=== PATIENT | male | born 1990 | race Caucasian/White ===

== ENCOUNTER 2018-10-06 21:24 | Emergency (ER) | payer BC ==
--- NOTE | 2018-10-06 22:24 | EDM.PDOC ---
ED HPI GENERAL MEDICAL PROBLEM - General Chief Complaint: General Stated Complaint: PT SPOKE TO NURSE Time Seen by Provider: 10/06/18 21:43 - History of Present Illness INITIAL COMMENTS - FREE TEXT/NARRATIVE: HISTORY AND PHYSICAL: History of present illness: Patient 28-year-old male presents with a concern of possible abdominal wall hernia and left groin pain he denies testicular pain denies urethral discharge denies history of STD or concern of such. He states this abdominal wall issue has intermittent small bulge that is reducible and without associated symptoms patient denies nausea vomiting fever chills Review of systems: As per history of present illness and below otherwise all systems reviewed and negative. Past medical history: As per history of present illness and as reviewed below otherwise noncontributory. Surgical history: As per history of present illness and as reviewed below otherwise noncontributory. Social history: No reported history of drug or alcohol abuse. Family history: As per history of present illness and as reviewed below otherwise noncontributory. Physical exam: HEENT: Atraumatic, normocephalic, pupils reactive, negative for conjunctival pallor or scleral icterus, mucous membranes moist, throat clear, neck supple, nontender, trachea midline. Lungs: Clear to auscultation, breath sounds equal bilaterally, chest nontender. Heart: S1S2, regular, negative for clicks, rubs, or JVD. Abdomen: Soft, nondistended, nontender. Negative for masses or hepatosplenomegaly. Negative for costovertebral tenderness. Pelvis: Stable nontender. Genitourinary: No genital lesions no urethral discharge no hernia testes/ epididymis normal Rectal: Deferred. Extremities: Atraumatic, negative for cords or calf pain. Neurovascular unremarkable. Neuro: Awake, alert, oriented. Cranial nerves II through XII unremarkable. Cerebellum unremarkable. Motor and sensory unremarkable throughout. Exam nonfocal. Diagnostics: UA urine for GC chlamydia Therapeutics: None Impression: #1 medical screening exam #2 groin pain #3 rule out abdominal wall hernia Definitive disposition and diagnosis as appropriate pending reevaluation and review of above. Bilateral Groin Pain Score (Numeric/FACES): 7 - Related Data Allergies Allergy/AdvReac Type Severity Reaction Status Date / Time No Known Allergies Allergy Verified 07/13/14 02:47 Home Meds: Home Meds Omeprazole Magnesium [Prilosec Otc] 40 mg PO DAILY 07/13/14 [History] Sucralfate [Carafate] 1 gm PO QID 07/13/14 [History] Past Medical History - Past Health History Medical/Surgical History: Denies Medical/Surgical History - Infectious Disease History Infectious Disease History: Reports: Chicken Pox - Past Surgical History Other Musculoskeletal Surgeries/Procedures:: wrist surgery Social & Family History - Tobacco Use Smoking Status *Q: Current Every Day Smoker Years of Tobacco use: 12 Packs/Tins Daily: 1 - Recreational Drug Use Recreational Drug Use: No ED ROS GENERAL - Review of Systems Review Of Systems: ROS reveals no pertinent complaints other than HPI. ED EXAM, GENERAL - Physical Exam Exam: See Below (See dictation) Course - Vital Signs Last Recorded V/S: Last Vital Signs Temp 36.4 C 10/06/18 21:40 Pulse 92 10/06/18 21:40 Resp BP 131/71 10/06/18 21:40 Pulse Ox 96 10/06/18 21:40 - Orders/Labs/Meds Orders: Active Orders 24 hr Category Date Time Status CHLAMYDIA AND GONORRHEA BY TMA Stat Lab 10/06/18 21:53 Received UA W/NORMA RFLX IF INDICATED [URIN] Stat Lab 10/06/18 21:53 Received Departure - Departure Time of Disposition: 22:23 Disposition: Home, Self-Care 01 Condition: Good Clinical Impression: Groin pain, Encounter for medical screening examination - Discharge Information Referrals: PCP,None [Primary Care Provider] - Additional Instructions: The following information is given to patients seen in the emergency department who are being discharged to home. This information is to outline your options for follow-up care. We provide all patients seen in our emergency department with a follow-up referral. The need for follow-up, as well as the timing and circumstances, are variable depending upon the specifics of your emergency department visit. If you don't have a primary care physician on staff, we will provide you with a referral. We always advise you to contact your personal physician following an emergency department visit to inform them of the circumstance of the visit and for follow-up with them and/or the need for any referrals to a consulting specialist. The emergency department will also refer you to a specialist when appropriate. This referral assures that you have the opportunity for followup care with a specialist. All of these measure are taken in an effort to provide you with optimal care, which includes your followup. Under all circumstances we always encourage you to contact your private physician who remains a resource for coordinating your care. When calling for followup care, please make the office aware that this follow-up is from your recent emergency room visit. If for any reason you are refused follow-up, please contact the [facility] emergency department at and asked to speak to the emergency department charge nurse. [facility] [address] [place] [address], [address] [place] [address] [facility] [address] [place] [id number] Follow-up Gen. surgery/urology as needed as discussed return as needed as discussed - My Orders Last 24 Hours: My Active Orders 10/06/18 21:53 CHLAMYDIA AND GONORRHEA BY TMA Stat UA W/NORMA RFLX IF INDICATED [URIN] Stat - Assessment/Plan Last 24 Hours: My Active Orders 10/06/18 21:53 CHLAMYDIA AND GONORRHEA BY TMA Stat UA W/NORMA RFLX IF INDICATED [URIN] Stat
[2018-10-06 22:43] VITALS: BP 128/78
== END 2018-10-06 22:41 | disposition home or self-care (01) ==
LOC: MW.ED 21:24
DX: R10.32 Left lower quadrant pain (principal); R10.31 Right lower quadrant pain; F17.210 Nicotine dependence, cigarettes, uncomplicated; Z79.899 Other long term (current) drug therapy
CPT/HCPCS: 81003; 87491; 87591; 99282; 99283

== ENCOUNTER 2019-05-13 05:57 | Emergency (ER) | payer OTHER ==
--- NOTE | 2019-05-13 06:10 | EDM.PDOC ---
ED HPI GENERAL MEDICAL PROBLEM - General Chief Complaint: Chest Pain Stated Complaint: CHEST PAIN Time Seen by Provider: 05/13/19 06:10 - History of Present Illness INITIAL COMMENTS - FREE TEXT/NARRATIVE: HISTORY AND PHYSICAL: History of present illness: Patient's 29-year-old white male presents with a chest pain is vaguely described without associated palpitations diaphoresis nausea vomiting shortness breath or other concern he denies trauma. Review of systems: As per history of present illness and below otherwise all systems reviewed and negative. Past medical history: As per history of present illness and as reviewed below otherwise noncontributory. Surgical history: As per history of present illness and as reviewed below otherwise noncontributory. Social history: No reported history of drug or alcohol abuse. Family history: As per history of present illness and as reviewed below otherwise noncontributory. Physical exam: HEENT: Atraumatic, normocephalic, pupils reactive, negative for conjunctival pallor or scleral icterus, mucous membranes moist, throat clear, neck supple, nontender, trachea midline. Lungs: Clear to auscultation, breath sounds equal bilaterally, chest nontender. Heart: S1S2, regular, negative for clicks, rubs, or JVD. Abdomen: Soft, nondistended, nontender. Negative for masses or hepatosplenomegaly. Negative for costovertebral tenderness. Pelvis: Stable nontender. Genitourinary: Deferred. Rectal: Deferred. Extremities: Atraumatic, negative for cords or calf pain. Neurovascular unremarkable. Neuro: Awake, alert, oriented. Cranial nerves II through XII unremarkable. Cerebellum unremarkable. Motor and sensory unremarkable throughout. Exam nonfocal. Diagnostics: Chest X-ray EKG Therapeutics: None Impression: #1 atypical chest pain Definitive disposition and diagnosis as appropriate pending reevaluation and review of above. chest Pain Score (Numeric/FACES): 7 - Related Data Allergies Allergy/AdvReac Type Severity Reaction Status Date / Time No Known Allergies Allergy Verified 05/13/19 06:02 Home Meds: Home Meds . [No Known Home Meds] 05/13/19 [History] Past Medical History - Past Health History Medical/Surgical History: Denies Medical/Surgical History - Infectious Disease History Infectious Disease History: Reports: Chicken Pox - Past Surgical History Other Musculoskeletal Surgeries/Procedures:: wrist surgery ED ROS GENERAL - Review of Systems Review Of Systems: Comprehensive ROS is negative, except as noted in HPI. ED EXAM, GENERAL - Physical Exam Exam: See Below (See dictation) Course - Vital Signs Last Recorded V/S: Last Vital Signs Temp 36.8 C 05/13/19 06:02 Pulse 61 05/13/19 06:02 Resp 14 05/13/19 06:02 BP 119/71 05/13/19 06:02 Pulse Ox 96 05/13/19 06:02 - Orders/Labs/Meds Orders: Active Orders 24 hr Category Date Time Status EKG Documentation Completion [RC] STAT Care 05/13/19 06:01 Active Chest 1V Frontal [CR] Stat Exams 05/13/19 06:01 Ordered Departure - Departure Time of Disposition: 06:10 Disposition: Home, W Home Health Agency 06 Condition: Good Clinical Impression: Atypical chest pain - Discharge Information Additional Instructions: The following information is given to patients seen in the emergency department who are being discharged to home. This information is to outline your options for follow-up care. We provide all patients seen in our emergency department with a follow-up referral. The need for follow-up, as well as the timing and circumstances, are variable depending upon the specifics of your emergency department visit. If you don't have a primary care physician on staff, we will provide you with a referral. We always advise you to contact your personal physician following an emergency department visit to inform them of the circumstance of the visit and for follow-up with them and/or the need for any referrals to a consulting specialist. The emergency department will also refer you to a specialist when appropriate. This referral assures that you have the opportunity for followup care with a specialist. All of these measure are taken in an effort to provide you with optimal care, which includes your followup. Under all circumstances we always encourage you to contact your private physician who remains a resource for coordinating your care. When calling for followup care, please make the office aware that this follow-up is from your recent emergency room visit. If for any reason you are refused follow-up, please contact the [facility] emergency department at and asked to speak to the emergency department charge nurse. Follow-up primary medical doctor as needed as discussed return as needed as discussed - My Orders Last 24 Hours: My Active Orders 05/13/19 06:01 EKG Documentation Completion [RC] STAT Chest 1V Frontal [CR] Stat - Assessment/Plan Last 24 Hours: My Active Orders 05/13/19 06:01 EKG Documentation Completion [RC] STAT Chest 1V Frontal [CR] Stat
[2019-05-13 06:46] VITALS: BP 113/66; PULSE 60
--- NOTE | 2019-05-13 06:58 | CR ---
INDICATION: Pain. Shortness of breath. TECHNIQUE: AP portable chest x-ray. FINDINGS: Heart size normal. Lungs are hyperinflated or there has been a deep inspiration. Lungs are clear without infiltrate or consolidation. Chest otherwise unremarkable without acute disease. Dictated by Toñito Moise MD @ May 13 2019 6:57AM Signed by Dr. Toñito Moise @ May 13 2019 6:57AM
== END 2019-05-13 07:06 | disposition home or self-care (01) ==
LOC: MW.ED 05:57
DX: R07.89 Other chest pain (principal)
CPT/HCPCS: 71045; 71045-26; 93005; 99284-25

== ENCOUNTER 2019-05-13 14:11 | Emergency (ER) | payer OTHER ==
[2019-05-13] MEDS ORDERED: Ketorolac 60 MG/2 ML SDV IM ONE (14:22)
[2019-05-13] MEDS ORDERED: Ondansetron 4 MG Tab.DIS PO ONE (14:22)
--- NOTE | 2019-05-13 14:33 | EDM.PDOC ---
ED HPI GENERAL MEDICAL PROBLEM - General Chief Complaint: Chest Pain Stated Complaint: CHEST PAIN Time Seen by Provider: 05/13/19 14:12 Source of Information: Reports: Patient History Limitations: Reports: No Limitations - History of Present Illness INITIAL COMMENTS - FREE TEXT/NARRATIVE: HISTORY AND PHYSICAL: History of present illness: Patient is a 29-year-old male who presents to the ED today with concern of chest pain since this morning. Patient states he was seen in the ED and evaluated for chest pain a 4 this morning but has been continuing to have the chest pain. Patient states he also has a sore throat, generalized body aches, and slight nausea along with the chest pain. Patient states he has not taken anything for his symptoms. Patient denies any change in this chest pain since his prior evaluation this morning in the ED. Patient denies any health history or any other symptoms or concerns. Patient denies fever, chills, shortness of breath, or cough. Denies headache, neck stiff ness, change in vision, syncope, or near syncope. Denies vomiting, abdominal pain, diarrhea, constipation, or dysuria. Has not noted any blood in urine or stool. Patient has been eating and drinking appropriately. Review of systems: As per history of present illness and below otherwise all systems reviewed and negative. Past medical history: As per history of present illness and as reviewed below otherwise noncontributory. Surgical history: As per history of present illness and as reviewed below otherwise noncontributory. Social history: See social history for further information Family history: As per history of present illness and as reviewed below otherwise noncontributory. Physical exam: General: Patient is alert, oriented, and in no acute distress. Patient laying comfortably on exam table. HEENT: Atraumatic, normocephalic, pupils equal and reactive bilaterally, negative for conjunctival pallor or scleral icterus, mucous membranes moist, TMs normal bilaterally, throat clear, neck supple, nontender, trachea midline. No drooling or trismus noted. No meningeal signs. No hot potato voice noted. Lungs: Clear to auscultation, breath sounds equal bilaterally, chest nontender. Heart: S1S2, regular rate and rhythm without overt murmur Abdomen: Soft, nondistended, nontender. Negative for masses or hepatosplenomegaly. Negative for costovertebral tenderness. Pelvis: Stable nontender. Genitourinary: Deferred. Rectal: Deferred. Skin: Intact, warm, dry. No lesions or rashes noted. Extremities: Atraumatic, negative for cords or calf pain. Neurovascular unremarkable. Neuro: Awake, alert, oriented. Cranial nerves II through XII unremarkable. Cerebellum unremarkable. Motor and sensory unremarkable throughout. Exam nonfocal. Notes: Dr. Silverman verbally involved in patient care. Patient expresses resolution of symptoms with therapeutics in the ED today. Repeat EKG no dynamic or acute changes. Discussed with cardiology at [facility] and requests transfer for observation with likely viral myocarditis. Dr. Dickerson consulted on patient and accepting of transfer Voices understanding and is agreeable to plan of care. Denies any further questions or concerns at this time. Diagnostics: CBC, CMP, UA, EKG, troponin, strep, influenza, UDS, ddimer (patient did have CXR this AM which showed no acute findings) Therapeutics: Toradol, ASA Impression: Chest pain Elevated troponin Plan: 1. Transfer to [facility] via EMS to Dr. Diaz Definitive disposition and diagnosis as appropriate pending reevaluation and review of above. Mid CHest Pain Score (Numeric/FACES): 8 - Related Data Allergies Allergy/AdvReac Type Severity Reaction Status Date / Time No Known Allergies Allergy Verified 05/13/19 14:16 Home Meds: Home Meds . [No Known Home Meds] 05/13/19 [History] Past Medical History - Past Health History Medical/Surgical History: Denies Medical/Surgical History - Infectious Disease History Infectious Disease History: Reports: Chicken Pox - Past Surgical History Other Musculoskeletal Surgeries/Procedures:: wrist surgery Social & Family History - Family History Family Medical History: Noncontributory - Tobacco Use Smoking Status *Q: Current Every Day Smoker Years of Tobacco use: 5 Packs/Tins Daily: 1 - Caffeine Use Caffeine Use: Reports: Coffee, Energy Drinks, Soda - Recreational Drug Use Recreational Drug Use: Yes Recreational Drug Type: Reports: Marijuana/Hashish Recreational Drug Use Frequency: Daily ED ROS GENERAL - Review of Systems Review Of Systems: Comprehensive ROS is negative, except as noted in HPI. ED EXAM, GENERAL - Physical Exam Exam: See Below (See dictation) Course - Vital Signs Last Recorded V/S: Last Vital Signs Temp 97.0 F 05/13/19 16:32 Pulse 55 L 05/13/19 16:32 Resp 16 05/13/19 16:32 BP 113/62 05/13/19 16:32 Pulse Ox 97 05/13/19 16:32 - Orders/Labs/Meds Orders: Active Orders 24 hr Category Date Time Status EKG Documentation Completion [RC] STAT Care 05/13/19 14:13 Active EKG Documentation Completion [RC] STAT Care 05/13/19 15:20 Active CULTURE STREP A CONFIRMATION [] Stat Lab 05/13/19 14:35 Results STREP SCRN A RAPID W CULT CONF [RM] Stat Lab 05/13/19 14:35 Results Labs: Laboratory Tests 05/13/19 05/13/19 05/13/19 Range/Units 14:25 14:25 14:25 WBC 5.85 (4.0-11.0) K/uL RBC 4.52 (4.50-5.90) M/uL Hgb 13.6 (13.0-17.0) g/dL Hct 39.5 (38.0-50.0) % MCV 87.4 (80.0-98.0) fL MCH 30.1 (27.0-32.0) pg MCHC 34.4 (31.0-37.0) g/dL RDW Std Deviation 44.5 (28.0-62.0) fl RDW Coeff of Robyn 14 (11.0-15.0) % Plt Count 205 (150-400) K/uL MPV 9.70 (7.40-12.00) fL Neut % (Auto) 44.6 L (48.0-80.0) % Lymph % (Auto) 35.2 (16.0-40.0) % [place] % (Auto) 17.9 H (0.0-15.0) % Eos % (Auto) 2.1 (0.0-7.0) % Baso % (Auto) 0.2 (0.0-1.5) % Neut # (Auto) 2.6 (1.4-5.7) K/uL Lymph # (Auto) 2.1 (0.6-2.4) K/uL [place] # (Auto) 1.1 H (0.0-0.8) K/uL Eos # (Auto) 0.1 (0.0-0.7) K/uL Baso # (Auto) 0.0 (0.0-0.1) K/uL Nucleated RBC % 0.0 /100WBC Nucleated RBCs # 0 K/uL D-Dimer, Quantitative 0.31 (0.0-0.50) mg/L FEU Sodium 138 (136-148) mmol/L Potassium 3.9 (3.5-5.1) mmol/L Chloride 105 (98-107) mmol/L Carbon Dioxide 24.2 (21.0-32.0) mmol/L BUN 13 (7.0-18.0) mg/dL Creatinine 0.8 (0.8-1.3) mg/dL Est Cr Clr Drug Dosing 164.31 mL/min Estimated GFR (MDRD) > 60.0 ml/min Glucose 91 (74-106) mg/dL Calcium 8.1 L (8.5-10.1) mg/dL Total Bilirubin 0.4 (0.2-1.0) mg/dL AST 79 H (15-37) IU/L ALT 38 (14-63) IU/L Alkaline Phosphatase 71 (46-116) U/L Troponin I 10.723 H* (0.000-0.056) ng/mL Total Protein 6.7 (6.4-8.2) g/dL Albumin 3.5 (3.4-5.0) g/dL Globulin 3.2 (2.6-4.0) g/dL Albumin/Globulin Ratio 1.1 (0.9-1.6) Urine Color Urine Appearance Urine pH (5.0-8.0) Ur Specific [place] (1.001-1.035) Urine Protein (NEGATIVE) mg/dL Urine Glucose (UA) (NEGATIVE) mg/dL Urine Ketones (NEGATIVE) mg/dL Urine Occult Blood (NEGATIVE) Urine Nitrite (NEGATIVE) Urine Bilirubin (NEGATIVE) Urine Ictotest Urine Urobilinogen (<2.0) EU/dL Ur Leukocyte Esterase (NEGATIVE) Urine Opiates Screen (NEGATIVE) Ur Oxycodone Screen (NEGATIVE) Urine Methadone Screen (NEGATIVE) Ur Barbiturates Screen (NEGATIVE) Ur Phencyclidine Scrn (NEGATIVE) Ur Amphetamine Screen (NEGATIVE) U Methamphetamines Scrn (NEGATIVE) U Benzodiazepines Scrn (NEGATIVE) U Cocaine Metab Screen (NEGATIVE) U Marijuana (THC) Screen (NEGATIVE) 05/13/19 05/13/19 05/13/19 Range/Units 14:35 14:35 15:30 WBC (4.0-11.0) K/uL RBC (4.50-5.90) M/uL Hgb (13.0-17.0) g/dL Hct (38.0-50.0) % MCV (80.0-98.0) fL MCH (27.0-32.0) pg MCHC (31.0-37.0) g/dL RDW Std Deviation (28.0-62.0) fl RDW Coeff of Robyn (11.0-15.0) % Plt Count (150-400) K/uL MPV (7.40-12.00) fL Neut % (Auto) (48.0-80.0) % Lymph % (Auto) (16.0-40.0) % [place] % (Auto) (0.0-15.0) % Eos % (Auto) (0.0-7.0) % Baso % (Auto) (0.0-1.5) % Neut # (Auto) (1.4-5.7) K/uL Lymph # (Auto) (0.6-2.4) K/uL [place] # (Auto) (0.0-0.8) K/uL Eos # (Auto) (0.0-0.7) K/uL Baso # (Auto) (0.0-0.1) K/uL Nucleated RBC % /100WBC Nucleated RBCs # K/uL D-Dimer, Quantitative (0.0-0.50) mg/L FEU Sodium (136-148) mmol/L Potassium (3.5-5.1) mmol/L Chloride (98-107) mmol/L Carbon Dioxide (21.0-32.0) mmol/L BUN (7.0-18.0) mg/dL Creatinine (0.8-1.3) mg/dL Est Cr Clr Drug Dosing mL/min Estimated GFR (MDRD) ml/min Glucose (74-106) mg/dL Calcium (8.5-10.1) mg/dL Total Bilirubin (0.2-1.0) mg/dL AST (15-37) IU/L ALT (14-63) IU/L Alkaline Phosphatase (46-116) U/L Troponin I 12.681 H* (0.000-0.056) ng/mL Total Protein (6.4-8.2) g/dL Albumin (3.4-5.0) g/dL Globulin (2.6-4.0) g/dL Albumin/Globulin Ratio (0.9-1.6) Urine Color YELLOW Urine Appearance CLEAR Urine pH 5.5 (5.0-8.0) Ur Specific [place] >= 1.030 (1.001-1.035) Urine Protein NEGATIVE (NEGATIVE) mg/dL Urine Glucose (UA) NEGATIVE (NEGATIVE) mg/dL Urine Ketones TRACE H (NEGATIVE) mg/dL Urine Occult Blood NEGATIVE (NEGATIVE) Urine Nitrite NEGATIVE (NEGATIVE) Urine Bilirubin SMALL H (NEGATIVE) Urine Ictotest NEGATIVE Urine Urobilinogen 0.2 (<2.0) EU/dL Ur Leukocyte Esterase NEGATIVE (NEGATIVE) Urine Opiates Screen NEGATIVE (NEGATIVE) Ur Oxycodone Screen NEGATIVE (NEGATIVE) Urine Methadone Screen NEGATIVE (NEGATIVE) Ur Barbiturates Screen NEGATIVE (NEGATIVE) Ur Phencyclidine Scrn NEGATIVE (NEGATIVE) Ur Amphetamine Screen NEGATIVE (NEGATIVE) U Methamphetamines Scrn NEGATIVE (NEGATIVE) U Benzodiazepines Scrn NEGATIVE (NEGATIVE) U Cocaine Metab Screen NEGATIVE (NEGATIVE) U Marijuana (THC) Screen POSITIVE (NEGATIVE) Meds: Medications Discontinued Medications Generic Name Dose Route Start Last Admin Trade Name Freq PRN Reason Stop Dose Admin Aspirin 324 mg 05/13/19 15:20 05/13/19 15:41 Aspirin PO 05/13/19 15:21 324 mg ONETIME ONE Administration Sodium Chloride 1,000 mls @ 999 mls/hr 05/13/19 15:25 05/13/19 15:47 Normal Saline IV 05/13/19 16:25 999 mls/hr STAT ONE Administration Ketorolac Tromethamine 60 mg 05/13/19 14:22 05/13/19 14:35 Toradol IM 05/13/19 14:23 60 mg ONETIME ONE Administration Ondansetron HCl 4 mg 05/13/19 14:22 05/13/19 14:35 Zofran Odt PO 05/13/19 14:23 4 mg ONETIME ONE Administration Departure - Departure Time of Disposition: 16:39 Disposition: DC/[facility]fer to [facility] 02 Clinical Impression: Elevated troponin Chest pain Qualifiers: Chest pain type: unspecified Qualified Code(s): R07.9 - Chest pain, unspecified - Discharge Information Referrals: PCP,Unobtain [Primary Care Provider] - Forms: ED Department Discharge - My Orders Last 24 Hours: My Active Orders 05/13/19 14:13 EKG Documentation Completion [RC] STAT 05/13/19 14:35 CULTURE STREP A CONFIRMATION [RM] Stat STREP SCRN A RAPID W CULT CONF [RM] Stat 05/13/19 15:20 EKG Documentation Completion [RC] STAT - Assessment/Plan Last 24 Hours: My Active Orders 05/13/19 14:13 EKG Documentation Completion [RC] STAT 05/13/19 14:35 CULTURE STREP A CONFIRMATION [RM] Stat STREP SCRN A RAPID W CULT CONF [RM] Stat 05/13/19 15:20 EKG Documentation Completion [RC] STAT
[2019-05-13 14:58] LABS: BLOOD UREA NITROGEN,BUN 13 mg/dL (7.0-18.0); CARBON DIOXIDE,CO2 24.2 mmol/L (21.0-32.0); CHLORIDE,CL 105 mmol/L (98-107); GLUCOSE RANDOM 91 mg/dL (74-106); POTASSIUM,K 3.9 mmol/L (3.5-5.1); SODIUM,NA 138 mmol/L (136-148)
[2019-05-13] MEDS ORDERED: Aspirin 81 MG Tab.Chew PO ONE (15:20)
[2019-05-13] MEDS ORDERED: Sodium Chloride 0.9% 1,000 ML IV ONE (15:25)
[2019-05-13 18:24] VITALS: BP 127/65; PULSE 72
== END 2019-05-13 19:00 ==
LOC: MW.ED 14:11
DX: R07.9 Chest pain, unspecified (principal); R79.89 Other specified abnormal findings of blood chemistry; F17.210 Nicotine dependence, cigarettes, uncomplicated
CPT/HCPCS: 36415; 80053; 80305; 81003; 84484; 85025; 85379; 87081; 87804; 87880; 96360; 96372; 99285; A9270; J1885; J7040

== ENCOUNTER 2019-06-06 21:51 | Emergency (ER) | payer OTHER ==
[2019-06-06] MEDS ORDERED: Sodium Chloride 0.9% 10 ML Syringe FLUSH PRN (22:19)
[2019-06-06] MEDS ORDERED: Sodium Chloride 0.9% 2.5 ML Syringe FLUSH PRN (22:19)
[2019-06-06] MEDS ORDERED: Ketorolac 30 MG/ML SDV IVPUSH ONE (22:19)
--- NOTE | 2019-06-06 22:25 | EDM.PDOC ---
ED HPI GENERAL MEDICAL PROBLEM - General Chief Complaint: Lower Extremity Injury/Pain Stated Complaint: TOE INFECTED ON LT FOOT Time Seen by Provider: 06/06/19 22:06 - History of Present Illness INITIAL COMMENTS - FREE TEXT/NARRATIVE: HISTORY AND PHYSICAL: History of present illness: The patient is a 29-year-old male who is up-to-date on his tetanus shot and had a recent admission to [facility] in [place] for viral myocarditis who presents with a history of cutting his toenails are 2 days ago and noticing some drainage and redness to the medial aspect of his left great toe which has worsened over the last day and a half. He says that while he was cutting the nail he did feel some discomfort but then noticed some bleeding a little bit of drainage and the redness seemed to progress of his foot and is now going up his leg. The patient has no history of diabetes or other medical problems other than what is stated above and says that there is discomfort at the toe but no calf tenderness and no other systemic issues. He has not had a fever chest pain or shortness of breath and has been eating and drinking normally. He has not noticed any monica drainage from the toe. The remainder of the toes and the foot are without tenderness and he denies any other trauma to the toe or the foot. Review of systems: As per history of present illness and below otherwise all systems reviewed and negative. Past medical history: As per history of present illness and as reviewed below otherwise noncontributory. Surgical history: As per history of present illness and as reviewed below otherwise noncontributory. Social history: No reported history of drug or alcohol abuse. Family history: As per history of present illness and as reviewed below otherwise noncontributory. Physical exam: General: Well-developed well-nourished nontoxic man who is speaking clearly and easily in the ED and vital signs are reviewed by me HEENT: Atraumatic, normocephalic, negative for conjunctival pallor or scleral icterus, mucous membranes moist, throat clear, neck supple, nontender, trachea midline. Lungs: Clear to auscultation, breath sounds equal bilaterally, chest nontender. Heart: S1S2, regular rate and rhythm no overt murmurs Abdomen: Soft, nondistended, nontender. NABS Pelvis: Stable nontender. Genitourinary: Deferred. Rectal: Deferred. Extremities: Atraumatic and full range of motion of all extremities with the exception of the left foot where at the medial aspect of the toenail there is some scab-like material and scant drainage but no fluctuance and there is diffuse erythema of the dorsal aspect of the great toe surrounding the base of the toenail and extending up the foot and to the distal one third of the lower leg. The erythema is relatively well demarcated and the toe itself has diffuse swelling and tenderness but no crepitus is appreciated in the toe or the foot. I cannot express any drainage from the toe and there is no gross fluctuance in this area. The remainder of the toes and the foot have no bony architectural abnormalities and no other soft tissue changes. The legs are, negative for cords or calf pain. Neurovascular unremarkable. There is no swelling of the left calf or leg and no leg asymmetry. Neuro: Awake, alert, oriented. Cranial nerves II through XII unremarkable. Cerebellum unremarkable. Motor and sensory unremarkable throughout. Exam nonfocal. There is no gross ingiunal adenopathy on the left Diagnostics: CBC lactic acid blood cultures 2 x-ray of the foot Therapeutics: IV placement, Toradol, vancomycin, I marked the area of erythema for further management I discussed with the patient and significant other at bedside that this would need to be followed up by her window clerk and definitive treatment of the ingrown toenail would need to be addressed but we would need to address the cellulitis prior to that. I will give them the follow-up information. Impression: Left toe/foot cellulitis status post toenail injury Definitive disposition and diagnosis as appropriate pending reevaluation and review of above. Left Foot Pain Score (Numeric/FACES): 10 - Related Data Allergies Allergy/AdvReac Type Severity Reaction Status Date / Time No Known Allergies Allergy Verified 06/06/19 22:01 Home Meds: Home Meds Colchicine [Colcrys] 0.6 mg PO DAILY 06/06/19 [History] Ibuprofen [Motrin] 800 mg PO ASDIRECTED PRN 06/06/19 [History] Past Medical History - Past Health History Medical/Surgical History: Denies Medical/Surgical History HEENT History: Reports: None Cardiovascular History: Reports: Other (See Below) Other Cardiovascular History: Viral Myocarditis 2019 Respiratory History: Reports: None Gastrointestinal History: Reports: None Genitourinary History: Reports: None Musculoskeletal History: Reports: None Neurological History: Reports: None Psychiatric History: Reports: None Endocrine/Metabolic History: Reports: None Hematologic History: Reports: None Immunologic History: Reports: None Oncologic (Cancer) History: Reports: None Dermatologic History: Reports: None - Infectious Disease History Infectious Disease History: Reports: Chicken Pox - Past Surgical History Head Surgeries/Procedures: Reports: None Other Musculoskeletal Surgeries/Procedures:: wrist surgery Social & Family History - Family History Family Medical History: Noncontributory - Tobacco Use Smoking Status *Q: Current Every Day Smoker Years of Tobacco use: 3 Packs/Tins Daily: 0.5 Used Tobacco, but Quit: No Second Hand Smoke Exposure: Yes - Caffeine Use Caffeine Use: Reports: Coffee, Energy Drinks, Soda - Recreational Drug Use Recreational Drug Use: Yes Drug Use in Last 12 Months: Yes Recreational Drug Type: Reports: Marijuana/Hashish Recreational Drug Use Frequency: Daily Review of Systems - Review of Systems Review Of Systems: Comprehensive ROS is negative, except as noted in HPI. ED EXAM, GENERAL - Physical Exam Exam: See Below (See dictation) Course - Vital Signs Last Recorded V/S: Last Vital Signs Temp 36.9 C 06/06/19 22:02 Pulse 76 06/06/19 22:02 Resp 16 06/06/19 22:02 BP 135/73 06/06/19 22:02 Pulse Ox 94 L 06/06/19 22:02 - Orders/Labs/Meds Orders: Active Orders 24 hr Category Date Time Status CULTURE BLOOD [BC] Stat Lab 06/06/19 22:20 Received CULTURE BLOOD [BC] Stat Lab 06/06/19 22:39 Received Sodium Chloride 0.9% [Saline Flush] Med 06/06/19 22:19 Active 10 ml FLUSH ASDIRECTED PRN Sodium Chloride 0.9% [Saline Flush] Med 06/06/19 22:19 Active 2.5 ml FLUSH ASDIRECTED PRN Vancomycin 1 gm Med 06/06/19 22:19 Active Sodium Chloride 0.9% [Normal Saline (AdvBag)] 250 ml IV ONETIME Blood Culture x2 Reflex Set [OM.PC] Stat Oth 06/06/19 22:25 Ordered Saline Lock Insert [OM.PC] Stat Oth 06/06/19 22:18 Ordered Medication Orders Vancomycin HCl 1 gm/ Sodium (Chloride) 250 mls @ 166 mls/hr IV ONETIME ONE Stop: 06/06/19 23:49 Last Admin: 06/06/19 22:48 Dose: 166 mls/hr Sodium Chloride (Saline Flush) 10 ml FLUSH ASDIRECTED PRN PRN Reason: Keep Vein Open Sodium Chloride (Saline Flush) 2.5 ml FLUSH ASDIRECTED PRN PRN Reason: Keep Vein Open Labs: Laboratory Tests 06/06/19 06/06/19 Range/Units 22:20 22:25 WBC 8.45 (4.0-11.0) K/uL RBC 4.73 (4.50-5.90) M/uL Hgb 14.5 (13.0-17.0) g/dL Hct 41.0 (38.0-50.0) % MCV 86.7 (80.0-98.0) fL MCH 30.7 (27.0-32.0) pg MCHC 35.4 (31.0-37.0) g/dL RDW Std Deviation 42.2 (28.0-62.0) fl RDW Coeff of Robyn 13 (11.0-15.0) % Plt Count 255 (150-400) K/uL MPV 10.00 (7.40-12.00) fL Neut % (Auto) 54.8 (48.0-80.0) % Lymph % (Auto) 21.5 (16.0-40.0) % [place] % (Auto) 16.3 H (0.0-15.0) % Eos % (Auto) 6.9 (0.0-7.0) % Baso % (Auto) 0.5 (0.0-1.5) % Neut # (Auto) 4.6 (1.4-5.7) K/uL Lymph # (Auto) 1.8 (0.6-2.4) K/uL [place] # (Auto) 1.4 H (0.0-0.8) K/uL Eos # (Auto) 0.6 (0.0-0.7) K/uL Baso # (Auto) 0.0 (0.0-0.1) K/uL Nucleated RBC % 0.0 /100WBC Nucleated RBCs # 0 K/uL Lactate 1.6 (0.20-2.00) mmol/L Meds: Medications Generic Name Dose Route Start Last Admin Trade Name Freq PRN Reason Stop Dose Admin Vancomycin HCl 1 gm/ Sodium 250 mls @ 166 mls/hr 06/06/19 22:19 06/06/19 22: 48 Chloride IV 06/06/19 23:49 166 mls/hr ONETIME ONE Administration Sodium Chloride 10 ml 06/06/19 22:19 Saline Flush FLUSH ASDIRECTED PRN Keep Vein Open Sodium Chloride 2.5 ml 06/06/19 22:19 Saline Flush FLUSH ASDIRECTED PRN Keep Vein Open Discontinued Medications Generic Name Dose Route Start Last Admin Trade Name Freq PRN Reason Stop Dose Admin Ketorolac Tromethamine 30 mg 06/06/19 22:19 06/06/19 22:48 Toradol IVPUSH 06/06/19 22:20 30 mg ONETIME ONE Administration Departure - Departure Time of Disposition: 23:15 Disposition: Home, Self-Care 01 Condition: Good Clinical Impression: Cellulitis of foot, left - Discharge Information Referrals: PCP,None [Primary Care Provider] - Forms: ED Department Discharge Additional Instructions: The following information is given to patients seen in the emergency department who are being discharged to home. This information is to outline your options for follow-up care. We provide all patients seen in our emergency department with a follow-up referral. The need for follow-up, as well as the timing and circumstances, are variable depending upon the specifics of your emergency department visit. If you don't have a primary care physician on staff, we will provide you with a referral. We always advise you to contact your personal physician following an emergency department visit to inform them of the circumstance of the visit and for follow-up with them and/or the need for any referrals to a consulting specialist. The emergency department will also refer you to a specialist when appropriate. This referral assures that you have the opportunity for followup care with a specialist. All of these measure are taken in an effort to provide you with optimal care, which includes your followup. Under all circumstances we always encourage you to contact your private physician who remains a resource for coordinating your care. When calling for followup care, please make the office aware that this follow-up is from your recent emergency room visit. If for any reason you are refused follow-up, please contact the [facility] emergency department at and ask to speak to the emergency department charge nurse Dr Sarah Galdamez [address] [place] [address] [address] [place] [address] Keep The area clean and dry and apply bacitracin or Neosporin to the open area at the toe. Elevate the leg and continue to monitor your other symptoms. Take antibiotics as directed and please call and schedule a follow-up appointment with our window clerk using resources given to above. Return to ER as needed and as discussed. The reddened area may expand slightly over the next 24 hours and then should start diminishing. Sepsis Event Note - Evaluation Sepsis Screening Result: No Definite Risk - Focused Exam Vital Signs: Vital Signs Temp Pulse Resp BP Pulse Ox 06/06/19 22:02 36.9 C 76 16 135/73 94 L Date Exam was Performed: 06/06/19 Time Exam was Performed: 23:15 - My Orders Last 24 Hours: My Active Orders 06/06/19 22:18 Saline Lock Insert [OM.PC] Stat 06/06/19 22:19 Sodium Chloride 0.9% [Saline Flush] 10 ml FLUSH ASDIRECTED PRN Sodium Chloride 0.9% [Saline Flush] 2.5 ml FLUSH ASDIRECTED PRN Vancomycin 1 gm Sodium Chloride 0.9% [Normal Saline (AdvBag)] 250 ml IV ONETIME 06/06/19 22:20 CULTURE BLOOD [BC] Stat 06/06/19 22:25 Blood Culture x2 Reflex Set [OM.PC] Stat 06/06/19 22:39 CULTURE BLOOD [BC] Stat - Assessment/Plan Last 24 Hours: My Active Orders 06/06/19 22:18 Saline Lock Insert [OM.PC] Stat 06/06/19 22:19 Sodium Chloride 0.9% [Saline Flush] 10 ml FLUSH ASDIRECTED PRN Sodium Chloride 0.9% [Saline Flush] 2.5 ml FLUSH ASDIRECTED PRN Vancomycin 1 gm Sodium Chloride 0.9% [Normal Saline (AdvBag)] 250 ml IV ONETIME 06/06/19 22:20 CULTURE BLOOD [BC] Stat 06/06/19 22:25 Blood Culture x2 Reflex Set [OM.PC] Stat 06/06/19 22:39 CULTURE BLOOD [BC] Stat
--- NOTE | 2019-06-06 23:13 | CR ---
Indication: Rule out gas. Technique: Two views of the left foot. Comparison: None Findings: The bipartite medial sesamoid bone is identified. No fracture or subluxation is identified. An os naviculare is present. No air is identified within the soft tissues. Impression: No acute fracture. Dictated by Fernanda Carpenter MD @ Jun 06 2019 11:10PM Signed by Dr. Fernanda Carpenter @ Jun 06 2019 11:11PM
[2019-06-07 00:27] VITALS: BP 110/61; PULSE 66
== END 2019-06-07 00:25 | disposition home or self-care (01) ==
LOC: MW.ED 21:51
DX: L03.116 Cellulitis of left lower limb (principal); L03.032 Cellulitis of left toe; F17.210 Nicotine dependence, cigarettes, uncomplicated; X58.XXXA Exposure to other specified factors, initial encounter
CPT/HCPCS: 36415; 73620; 83605; 85025; 87040; 96365; 96375; 99283; J1885; J3370; J7050

== ENCOUNTER 2021-12-04 18:35 | Emergency (ER) | payer MEDICAID ==
[2021-12-04] MEDS ORDERED: Silver Sulfadiazine 1% Crm 50 GM Tube TOP STA (20:08)
[2021-12-04 21:12] VITALS: BP 123/76; PULSE 89
== END 2021-12-04 21:12 | disposition home or self-care (01) ==
LOC: MW.ED 18:35
DX: L55.9 Sunburn, unspecified (principal)
CPT/HCPCS: 99282; A9270